=== PATIENT | male | born 1975 | race Hispanic/Latino ===

== ENCOUNTER 2023-07-24 19:09 | Emergency (ER) | payer BC, OTHER ==
[~2023-07-24] VITALS: Ht 180.3 cm; Wt 138.3 kg
[2023-07-24 20:15] VITALS: BP 163/83; PULSE 106; RESP 18
[2023-07-24] MEDS ORDERED: CLIN-141 PO (20:38)
== END 2023-07-24 20:56 | disposition home or self-care (01) ==
LOC: EDH 19:09
DX: L03.211 Cellulitis of face (principal)
CPT/HCPCS: 76536

== ENCOUNTER 2024-01-28 09:23 | Emergency (ER) | payer BC ==
[~2024-01-28] VITALS: Ht 180.3 cm; Wt 142.4 kg
[~2024-01-28 09:23] MED LIST: CLIN-141 PO
[2024-01-28] MEDS: acetaMINOPHEN 500 MG TABLET PO ONE (09:58)
--- NOTE | 2024-01-28 10:11 | ERN ---
General Chief Complaint: Lower Extremity Pain/Injury Stated Complaint: RT LEG PAIN Time Seen by MD: 09:28 Source: patient History of Present Illness Initial Comments Patient is a 48-year-old male coming to be evaluated for right lower extremity pain. Patient states that he had a Pallet fallen him couple of days ago causing increased pain. Allergies: Coded Allergies: No Known Drug Allergies (Unverified Allergy, Unknown, 10/24/18) Home Meds Active Scripts Clindamycin HCl (Clindamycin HCl) 300 Mg Capsule, 300 MG PO [id number] for 7 Days, #28 CAP Prov:KENTRELL HERNANDEZ MD 07/24/23 Past Medical History Past Medical History: No Pertinent History Past Surgical History: None Surgical History Other: ABD SX ROS Dictation CONSTITUTIONAL: No chills, no fever, no weakness, no diaphoresis, no malaise. HEAD/FACE: No signs of trauma. EENT: No eye pain, no blurred vision, no tearing, no double vision, no ear pain, no ear discharge, no nose pain, no nasal congestion, no throat pain, no throat swelling, no mouth pain. RESPIRATORY: No cough, no orthopnea, no SOB, no stridor, no wheezing. CARDIOVASCULAR: No chest pain, no edema, no palpitations, no syncope. GASTROINTESTINAL/ABDOMINAL: No abdominal pain, no constipation, no diarrhea, no nausea, no vomiting. GENITOURINARY: No abnormal discharge, no dysuria, no frequent urination, no hematuria. No complaints of pain in the genitals. MUSCULOSKELETAL: No back pain, no gout, no joint pain, no joint swelling, no muscle pain, no muscle stiffness, no neck pain. INTEGUMENTARY: No change in color, no change in hair/nails, no dryness, no lesion, no lumps, no rash. NEUROLOGICAL/PSYCH: No anxiety, not depressed, no emotional problem, no headache, no numbness, no pre-existing deficit, no history of seizures, no tremors, no weakness. HEMATOLOGIC/LYMPHATIC: Not anemic, no history of blood clots, no apparent bleeding, no bruising, glands not swollen. All Systems Negative, Except as Noted. Physical Exam Physical Exam Dictation VITAL SIGNS: Reviewed. GENERAL APPEARANCE: Alert, oriented x3, no acute distress, obese. HEAD AND FACE: Non-traumatic. EYES: PERRL, pink conjunctivas, eyelid no trauma, anterior chamber clear. EARS: Pinnas intact and no signs of trauma or erythema. Ear canals clear and no discharge. TMs no erythema. NOSE: No discharge, no bleeding. OROPHARYNX: Mouth normal, teeth no caries, tongue pink. Pharynx clear, no erythema. Tonsils no exudates, no abscesses noted. Mucous membrane moist. NECK: Supple, non-tender, no thyromegaly, no masses, no JVD, no bruits. BREAST: Deferred. CHEST: No tenderness, no crepitus, no paradoxical movement, no retractions. LUNGS: Clear, well-ventilated, symmetric, no rales, no wheezing, no rhonchi, no stridor, good breath sounds bilaterally. HEART: Regular rate, regular rhythm, no murmur, no gallops. VASCULAR: No peripheral edema. ABDOMEN: Soft, positive bowel sounds, nondistended, no guarding, nontender, no rebound, no masses no hepatomegaly, no splenomegaly, no Guerrero's sign, no hernias. RECTAL: Deferred. GENITAL: Deferred. NEUROLOGICAL: Normal speech, gross motor function intact, gross sensory function intact. MUSCULOSKELETAL: Neck nontender, full range of motion, back nontender, full range of motion. EXTREMITIES: Nontender, full range of motion. Right lower extremity tenderness on palpation SKIN: Color pink, dry, no turgor, no rash, no lacerations, no abrasions, no contusions. LYMPHATICS: Deferred. Results Laboratory and Microbiology Labs Reviewed?: Yes EKG/XRAY/US/CT/MRI X-RAY Comment [address] [id number] IMAGING REPORT Signed PATIENT: ARMANDO STEPHEN MR#: [id number] : 1975 SEX: M AGE: 48 LOCATION: ED ORDER 5 STATUS: REG ER REPORT#: [id number] SERVICE [id number] REASON: fall ORDERING PHYSICIAN: KENTRELL HERNANDEZ MD PROCEDURE: TIBFIB RT - TIBIA/FIBULA 2VWS RT RIGHT TIBIA AND FIBULA RADIOGRAPHS - 2 VIEWS INDICATION: Pain COMPARISON: None. FINDINGS: AP and lateral views. No acute fracture or subluxation identified. No intrinsic osseous abnormality detected. No radiopaque foreign body noted. IMPRESSION: No evidence for fracture or dislocation. DICTATED BY: RICHARD KNOX MD DATE: 01/28/24 1044 ELECTRONICALLY SIGNED BY: RICHARD KNOX MD DATE: 01/28/24 1046 [facility] MDM: Differential diagnosis: Lower extremity contusion Patient is a 48-year-old male coming in to be evaluated for right lower extremity pain. Patient states he hit himself with a Pallet in his here for evaluation. X-ray did not disclose acute findings. Patient will be discharged with a diagnosis of lower leg contusion. ED Course Orders Procedure Category Date Status Time Tibia/Fibula 2vws Rt RAD 01/28/24 Resulted 09:34 Acetaminophen 500mg PHA 01/28/24 Complete Tab (Tylenol 500mg T 10:00 Current Medications Medications (Trade) Dose Ordered Sig/Jeffery Route PRN Reason Start Time Stop Time Status Last Admin Dose Admin Acetaminophen (TYLenol 500MG TAB) 1,000 mg ONCE ONCE PO 01/28/24 10:00 01/28/24 10:01 DC 01/28/24 09:58 Vital Signs Date Time Temp Pulse Resp B/P (MAP) Pulse Ox O2 Delivery O2 Flow Rate FiO2 01/28/24 09:25 97.9 92 16 154/96 Room Air 0 DX & DISP Disposition: Discharge Departure Impression: Primary Impression: Contusion, lower leg Condition: Stable Additional Instructions: FOLLOW-UP WITH PRIMARY CARE PROVIDER IN 1 TO 2 DAYS. TAKE MEDICATIONS DIRECTED HERE IN THE EMERGENCY ROOM. OKAY TO CONTINUE HOME MEDICATIONS UNLESS OTHERWISE DISCUSSED DURING YOUR VISIT IN THE EMERGENCY ROOM TODAY. RETURN TO YOUR NEAREST EMERGENCY ROOM IF SYMPTOMS WORSEN OR IF THERE IS NO IMPROVEMENT. CALL 911 IF YOU NEED IMMEDIATE ASSISTANCE. TAKE TYLENOL [id number] NEEDED AND IF NO CONTRAINDICATIONS ARE PRESENT. INCREASE ORAL HYDRATION. A WOUND CULTURE OR URINE CULTURE WAS ORDERED HERE IN THE EMERGENCY ROOM DEPARTMENT PLEASE FOLLOW-UP WITH PRIMARY CARE PROVIDER AND ADVISE THEM TO GET REPEAT PORTS FROM OUR FACILITY. IF YOU HAD ANY KARLA WRAP/SPLINTS THAT WERE APPLIED HERE, PLEASE DO NOT REMOVE THEM UNTIL YOU SEE YOUR PRIMARY CARE OR SPECIALTY. Referrals: Referrals: NATY PEREA MD (PCP) Time of Disposition: 11:00 KENTRELL HERNANDEZ MD Jan 28, 2024 10:11
--- NOTE | 2024-01-28 10:46 | HMCIMG ---
RIGHT TIBIA AND FIBULA RADIOGRAPHS - 2 VIEWS INDICATION: Pain COMPARISON: None. FINDINGS: AP and lateral views. No acute fracture or subluxation identified. No intrinsic osseous abnormality detected. No radiopaque foreign body noted. IMPRESSION: No evidence for fracture or dislocation.
[2024-01-28 11:25] VITALS: BP 151/93; PULSE 90; RESP 16; TEMP 97.9; O2SAT 97
== END 2024-01-28 11:28 | disposition home or self-care (01) ==
LOC: EDH 09:23
DX: S80.11XA Contusion of right lower leg, initial encounter (principal); W18.39XA Other fall on same level, initial encounter; Y93.89 Activity, other specified; Y92.89 Other specified places as the place of occurrence of the external cause; Y99.8 Other external cause status
CPT/HCPCS: 73590; 99283